=== PATIENT | male | born 1950 | race Caucasian/White ===

== ENCOUNTER → 2019-12-31 10:50 | Outpatient (CLI) | payer MEDICARE, OTHER, SELFPAY ==
[2019-12-31 11:23] LABS: Add Manual Diff / Slide Review NO; Basophils Absolute Auto 100 /uL (0-100); Basophils Percent Auto 1.2 % (0-2); Eosinophils Absolute Auto 100 /uL (0-450); Eosinophils Percent Auto 1.3 % (2-4); Hematocrit 45.1 % (41-53); Hemoglobin 15.5 g/dL (13.5-17.5); Lymphocytes Absolute Auto 2600 /uL (1100-4500); Lymphocytes Percent Auto 43.1 % (25-40); Mean Corpuscular HGB Conc 34.3 % (30-36); Mean Corpuscular Hemoglobin 29.8 PG (26-34); Mean Corpuscular Volume 86.8 fL (80-100); Monocytes Absolute Auto 400 /uL (0-900); Monocytes Percent Auto 6.2 % (3-14); Neutrophils Absolute Auto 2900 /uL (1500-7000); Neutrophils Percent Auto 48.2 % (50-75); Platelet Count 194 X10^3/uL (150-400)
[2019-12-31 11:54] LABS: Alanine Aminotransferase 22 IU/L (<50); Albumin 3.9 g/dL (3.5-5.0); Albumin Globulin Ratio 1.6 (1.0-2.8); Alkaline Phosphatase 52 U/L (38-126); Aspartate Aminotransferase 30 IU/L (17-59); BUN Creatinine Ratio 15.8 (6-22); Bilirubin Total 0.7 mg/dL (0.2-1.3); Blood Urea Nitrogen 16 mg/dL (9-20); Calcium 9.3 mg/dL (8.4-10.2); Carbon Dioxide 32 mmol/L (22-32); Chloride 102 mmol/L (98-107); Cholesterol 122 mg/dL (140-199); Estimated Glomerular Filt Rate > 60.0 mL/min (>60); Globulin 2.5 g/dL (1.7-4.1); Glucose 108 mg/dL (80-110); HDL Cholesterol 30 mg/dL (40-60); HEMOLYSIS < 15 (0-50); LDL Cholesterol Calculated 71 mg/dL (<100); Potassium 3.9 mmol/L (3.4-5.1); Sodium 138 mmol/L (137-145); Total Protein 6.4 g/dL (6.3-8.2); Triglycerides 103 mg/dL (35-150)
== END ==
PROVIDERS: PCP Physician Assistant; Referring Provider Physician Assistant; Visit Provider Physician Assistant
DX: E78.00 Pure hypercholesterolemia, unspecified (principal); I10 Essential (primary) hypertension
CPT/HCPCS: 36415; 80053; 80061; 85025

== ENCOUNTER → 2020-06-30 12:37 | Outpatient (CLI) | payer MEDICARE, OTHER, SELFPAY ==
[2020-06-30 13:26] LABS: Add Manual Diff / Slide Review NO; Basophils Absolute Auto 100 /uL (0-100); Basophils Percent Auto 0.9 % (0-2); Eosinophils Absolute Auto 100 /uL (0-450); Eosinophils Percent Auto 1.3 % (2-4); Hematocrit 45.2 % (41-53); Hemoglobin 14.9 g/dL (13.5-17.5); Lymphocytes Absolute Auto 3200 /uL (1100-4500); Lymphocytes Percent Auto 41.7 % (25-40); Mean Corpuscular Hemoglobin 28.9 PG (26-34); Mean Corpuscular Volume 87.5 fL (80-100); Monocytes Absolute Auto 400 /uL (0-900); Monocytes Percent Auto 5.6 % (3-14); Neutrophils Absolute Auto 3800 /uL (1500-7000); Neutrophils Percent Auto 50.5 % (50-75); Platelet Count 221 X10^3/uL (150-400); Red Blood Cell Count 5.17 X10^6/uL (4.5-5.9); Red Cell Distribution Width 14.9 % (11.6-14.8); White Blood Cell Count 7.6 X10^3/uL (4.5-11.0)
[2020-06-30 13:55] LABS: Carbon Dioxide 34 mmol/L (22-32); Chloride 101 mmol/L (98-107); HEMOLYSIS < 15 (0-50); Potassium 3.9 mmol/L (3.4-5.1); Sodium 138 mmol/L (137-145)
== END ==
PROVIDERS: PCP Physician Assistant; Referring Provider Physician Assistant; Visit Provider Orthopaedic Surgery
DX: Z01.812 Encounter for preprocedural laboratory examination (principal); Z01.818 Encounter for other preprocedural examination
CPT/HCPCS: 36415; 80051; 85025

== ENCOUNTER → 2020-12-29 09:55 | Outpatient (CLI) | payer MEDICARE, OTHER, SELFPAY ==
[2020-12-29 10:38] LABS: Add Manual Diff / Slide Review NO; Basophils Absolute Auto 0 /uL (0-100); Basophils Percent Auto 0.6 % (0-2); Eosinophils Absolute Auto 100 /uL (0-450); Eosinophils Percent Auto 1.8 % (2-4); Hematocrit 47.8 % (41-53); Hemoglobin 15.8 g/dL (13.5-17.5); Lymphocytes Absolute Auto 2900 /uL (1100-4500); Lymphocytes Percent Auto 47.4 % (25-40); Mean Corpuscular HGB Conc 33.1 % (30-36); Mean Corpuscular Hemoglobin 28.8 PG (26-34); Mean Corpuscular Volume 87.1 fL (80-100); Monocytes Absolute Auto 400 /uL (0-900); Monocytes Percent Auto 6.5 % (3-14); Neutrophils Absolute Auto 2700 /uL (1500-7000); Neutrophils Percent Auto 43.7 % (50-75); Platelet Count 225 X10^3/uL (150-400); Red Blood Cell Count 5.48 X10^6/uL (4.5-5.9); Red Cell Distribution Width 15.3 % (11.6-14.8); White Blood Cell Count 6.1 X10^3/uL (4.5-11.0)
[2020-12-29 10:57] LABS: HEMOLYSIS < 15 (0-50); Potassium 3.9 mmol/L (3.4-5.1)
[2020-12-29 10:58] LABS: Alanine Aminotransferase 27 IU/L (<50); Albumin 3.9 g/dL (3.5-5.0); Albumin Globulin Ratio 1.4 (1.0-2.8); Alkaline Phosphatase 60 U/L (38-126); Aspartate Aminotransferase 30 IU/L (17-59); BUN Creatinine Ratio 16.3 (6-22); Bilirubin Total 0.6 mg/dL (0.2-1.3); Blood Urea Nitrogen 16 mg/dL (9-20); Calcium 9.4 mg/dL (8.4-10.2); Carbon Dioxide 31 mmol/L (22-32); Chloride 104 mmol/L (98-107); Cholesterol 130 mg/dL (140-199); Estimated Glomerular Filt Rate > 60.0 mL/min (>60); Globulin 2.8 g/dL (1.7-4.1); Glucose 110 mg/dL (80-110); HDL Cholesterol 33 mg/dL (40-60); LDL Cholesterol Calculated 80 mg/dL (<100); Sodium 141 mmol/L (137-145); Total Protein 6.7 g/dL (6.3-8.2); Triglycerides 87 mg/dL (35-150)
[2020-12-29 17:30] LABS: Hep C Virus Ab w/Reflex Quant NEGATIVE s/c (NEGATIVE)
== END ==
PROVIDERS: PCP Physician Assistant; Referring Provider Physician Assistant; Visit Provider Physician Assistant
DX: E78.2 Mixed hyperlipidemia (principal); Z11.59 Encounter for screening for other viral diseases
CPT/HCPCS: 36415; 80053; 80061; 85025; 86803

== ENCOUNTER → 2021-05-31 09:05 | Outpatient (CLI) | payer MEDICARE, OTHER, SELFPAY ==
[2021-05-31 12:13] LABS: COVID19 -Nasal RAPID Negative (Negative)
== END ==
PROVIDERS: PCP Physician Assistant; Visit Provider Specialist
DX: Z01.812 Encounter for preprocedural laboratory examination (principal); Z20.822 Contact with and (suspected) exposure to COVID-19
CPT/HCPCS: 87635; C9803

== ENCOUNTER 2021-06-01 13:17 | Day surgery (SDC) | payer MEDICARE, OTHER, SELFPAY ==
--- NOTE | 2021-06-01 | PATH_ITS ---
[facility] Accession Number: [id number] . 01 Material submitted: . PART A: colon - ASCENDING COLON POLYP X2 PART B: colon - 70CM COLON POLYP X2 PART C: rectum - RECTUM POLYP . 02 Diagnosis: A. Ascending Colon, Polyp x2, Biopsy: Multiple fragments of tubular adenoma, sessile serrated adenoma and benign lymphoid aggregate. . B. Colon, Polyp 70 cm x2, Biopsies: Tubulovillous adenoma in one of multiple fragments. Benign lymphoid aggregate in one fragment. Additional levels were examined. No evidence of malignancy or high grade dysplasia. . C. Rectum, Polyp, Biopsy: Hyperplastic polyp with features of mucosal prolapse. . [facility] 06/07/2021 1443 Local . 02 Electronically signed: . Becky Cameron MD, Pathologist NPI- [id number] . 01 Gross description: . A. Specimen A is received in formalin labeled ascending colon polyp and consists of multiple rodríguez-pink fragments of soft tissue, measuring 1.0 x 0.7 x 0.2 cm in aggregate. The specimen is entirely submitted in cassette A1. B. Specimen B is received in formalin labeled 70 cm colon polyp and consists of multiple rodríguez-pink fragments of soft tissue, measuring 0.9 x 0.7 x 0.2 cm in aggregate. The specimen is entirely submitted in cassette B1. C. Specimen C is received in formalin labeled rectum polyp and consists of a 0.3 x 0.2 x 0.2 cm rodríguez-pink fragment of soft tissue which is entirely submitted in cassette C1. ([id number]) /[facility] 06/02/2021 1802 Local . 02 Pathologist provided ICD-10: D12.2, D12.6 . 02 CPT . 206913, 106171, 218518 Performed at: 01 [facility] [address] [place] [address], [place], [place] [id number] MD Sebastián Giang MD Phone: [phone] Performed at: 02 [facility] [place] [address] [address] [place], [place] [id number] MD Becky Cameron MD Phone: [phone]
[2021-06-01 14:04] VITALS: BP 168/68; PULSE 78; RESP 18; TEMP 36.9; BMI 33.1
--- NOTE | 2021-06-01 14:37 | PM.HP.1 ---
History of Present Illness History of Present Illness Date Patient Seen: 06/01/21 Time Patient Seen: 14:37 Date of Onset of Symptoms: 06/01/21 Chief complaint: SCREENING COLONOSCOPY Narrative: The patient is here for screening colonoscopy. Last exam was 5 years ago. He had an uncle had colon cancer and he has personally had polyps removed. Patient History Medical History (Updated 06/01/21 @ 14:40 by Vaibhav Guerrero MD) BPH (benign prostatic hyperplasia) Hypertension Personal history of colonic polyps Family & Social History Social History: household members spouse Tobacco & Substance use: Smoking Status Former smoker alcohol intake frequency holiday/special occasion Substance Use Type does not use Meds Home Medications and Allergies Home Medications Medication Instructions Recorded Confirmed Type aspirin 81 mg tablet,delayed 81 mg PO BID #60 tab 04/13/16 06/01/21 Rx release amlodipine 10 mg tablet 10 mg PO DAILY 06/01/21 06/01/21 History hydrochlorothiazide 25 mg tablet 25 mg PO DAILY 06/01/21 06/01/21 History lisinopril 40 mg tablet 40 mg PO DAILY 06/01/21 06/01/21 History simvastatin 40 mg tablet 40 mg PO DAILY 06/01/21 06/01/21 History Allergies Allergy/AdvReac Type Severity Reaction Status Date / Time No Known Drug Allergies Allergy Verified 06/01/21 13:57 Review of Systems Review of Systems Narrative: Patient has no heart or breathing problems. No black or bloody bowel movements. No seizures or blackouts. Exam Vital Signs (past 8 hours): - 06/01/21 14:04 Temperature 98.4 F Pulse Rate 78 Respiratory Rate 18 Blood Pressure 168/68 H Oxygen Delivery Method Room Air Narrative Exam Narrative: Pleasant cooperative patient no apparent distress. Lungs are clear to auscultation. No rales or rhonchi. Heart regular rate and rhythm no murmur gallop. Abdomen is soft nontender without mass. No obvious hernias. Patient is alert and oriented x3. Assessment & Plan Assessment and plan (1) Personal history of colonic polyps: Status: Acute (2) Screening for colon cancer: Status: Acute Assessment & Plan narrative: Patient here for screening colonoscopy. I have discussed the procedure and the rationale with the patient including risks of bleeding, perforation which would necessitate a major operation, failure to find remove all lesions and the potential to tattoo. They appeared to understand and wished to proceed. Time Spent With Patient Critical Care time: I spent a total of [] minutes of critical care time on this patient's care today; this time is exclusive of procedural time.
--- NOTE | 2021-06-01 14:41 | PM.PREOP ---
Pre-operative Note COVID-19 COVID-19 status: Negative Result date/Date tested (Pos, Neg/Pending): 05/31/21 Interval Note History & Physical reviewed/Exam performed by Physician: Yes Changes to H&P: No ASA Class (for procedural sedation): II
[2021-06-01] MEDS: fentaNYL 250 MCG/5 ML INJ IV (14:49)
[2021-06-01] MEDS: MIDAZOLAM 5 MG/5 ML VIAL IV (15:06)
--- NOTE | 2021-06-01 15:28 | P.OP.COLON_ITS ---
Operative Date/Time/Diagnoses Date of procedure: 06/01/21 Time of procedure: 15:28 Pre-op diagnosis: History of colon polyps. Uncle with colon cancer. Last colonoscopy 5 years ago. Post-op diagnosis: same Procedure & Clinicians Study performed: Colonoscopy with hot snare polypectomy and cold biopsy Same procedure as scheduled: Yes Indications: Screening high risk patient Surgeon: Vaibhav Guerrero Procedure Notes SCOAP/Timeout: Performed Procedure in detail: The patient was placed in the left lateral decubitus position and underwent IV sedation directed by the surgeon consisting of fentanyl and Versed. Digital exa m was remarkable for a lax sphincter in an enlarged prostate. I did not feel a dominant mass. The scope was inserted and advanced through the rectum into the sigmoid, descending, transverse, and ascending colon. Patient was noted to have sigmoid diverticulosis. I Identified a polyp on the in the ascending colon which I snared in pieces and cauterized any residual. The cecum was reached identified by the ileocecal valve and the appendiceal opening. The ileocecal valve was briefly cannulated. The terminal ileum was normal in appearance. The scope was gradually brought out. An additional Polyp was found in the ascending colon which was biopsied and removed. On further regressed identified 2 polyps near70 cm from the anal verge which were snared and 1 small polyp in the rectum which I biopsied. All appeared to be completely removed. The scope ultimately was retroflexed in the rectum. The appearance was normal. The scope was removed and the patient tolerated the procedure well. The prep was adequate. Scope withdrawal time: 8 minutes(21.5 total) Sedation minutes: 40 Findings: divertiulosis and polyp(s) Specimen(s): other (Five polyps sent in 3 containers) Complications: none Post-procedure Recommendations: Colonoscopy in 5 years Follow up: as needed Disposition: PACU
[2021-06-01 15:31] VITALS: BP 160/80; PULSE 64; RESP 12; TEMP 36.4; O2SAT 99
[2021-06-01 15:36] VITALS: BP 145/74; PULSE 61; RESP 12; O2SAT 99
[2021-06-01 15:42] VITALS: BP 139/70; PULSE 60; RESP 12; O2SAT 98
[2021-06-01 15:46] VITALS: BP 154/77; PULSE 59; RESP 16; O2SAT 98
== END 2021-06-01 16:02 | disposition home or self-care (01) ==
PROVIDERS: PCP Physician Assistant; Referring Provider Specialist; Visit Provider Specialist
PROC: 0DJD8ZZ Inspection of Lower Intestinal Tract, Via Natural or Artificial Opening Endoscopic (ICD-10-PCS; CPT 45378; principal; 2021-06-01 14:30)
DX: Z12.11 Encounter for screening for malignant neoplasm of colon (principal); Z86.010 Personal history of colon polyps; I10 Essential (primary) hypertension; N40.0 Benign prostatic hyperplasia without lower urinary tract symptoms; D12.2 Benign neoplasm of ascending colon; K62.1 Rectal polyp
CPT/HCPCS: 45385; 45380; 99152; 99153; J2250; J3010

== ENCOUNTER → 2022-12-06 11:28 | Outpatient (CLI) | payer MEDICARE, OTHER, SELFPAY ==
[2022-12-06 13:14] LABS: BUN Creatinine Ratio 17.5 (6-22); Blood Urea Nitrogen 21 mg/dL (9-20); Calcium 9.2 mg/dL (8.4-10.2); Carbon Dioxide 31 mmol/L (22-32); Chloride 101 mmol/L (98-107); Estimated Glomerular Filt Rate > 60 mL/min (>60); Glucose 94 mg/dL (80-110); HEMOLYSIS < 15 (0-50); Potassium 4.2 mmol/L (3.4-5.1); Sodium 139 mmol/L (137-145)
== END ==
PROVIDERS: PCP Physician Assistant; Referring Provider Urology; Visit Provider Urology
DX: Z01.812 Encounter for preprocedural laboratory examination (principal); R31.21 Asymptomatic microscopic hematuria; R39.9 Unspecified symptoms and signs involving the genitourinary system; N40.1 Benign prostatic hyperplasia with lower urinary tract symptoms; R35.1 Nocturia
CPT/HCPCS: 36415; 51798; 80048; 81002; 99214

== ENCOUNTER → 2022-12-09 09:43 | Outpatient (CLI) | payer MEDICARE, OTHER, SELFPAY ==
--- NOTE | 2022-12-09 09:45 | DI.CT.S_ITS ---
PROCEDURE: CT ABDOMEN PELVIS WO/W CON INDICATIONS: hematuria TECHNIQUE: Optional 5 mm thick noncontrast images acquired from the diaphragm to the symphysis pubis. After the administration of intravenous contrast, 5 mm thick images acquired from the diaphragm to the symphysis pubis after a 10-minute delay. 2 mm thick coronal and sagittal reformats were then performed of the kidneys and ureters. For radiation dose reduction, the following was used: automated exposure control, adjustment of mA and/or kV according to patient size. COMPARISON: None. FINDINGS: Image quality: Excellent. Lung bases: Clear lung bases. Normal size heart. Small hiatal hernia. A few esophageal varices and aorta esophageal lymph node identified. Urinary system: Both kidneys are normal in size, without hydronephrosis or nephrolithiasis on pre-contrast images. An 8.8 cm nearly simple cyst arises from the anterior lower pole right kidney and contains a fine, minimally calcified septation. Occasional cysts are seen in the left kidney, the largest is arising from the left lower pole measuring 1.9 cm. A 1.8 cm hyperdense exophytic cyst arises from the midpole right kidney. No enhancement postcontrast. The renal parenchyma enhances symmetrically. There are parapelvic cysts, left more so than right. There is a focal transition at the left UPJ. Calices and ureters are otherwise normally opacified. The urinary bladder is partially distended and the wall demonstrates mild uniform thickening. The prostate gland is markedly enlarged measuring about 7.1 x 6.2 by 7.4 cm. Other solid organs: The liver is normal size. There are numerous thin-walled hypodensities scattered throughout, likely cysts. The gallbladder is decompressed. Biliary tree is appropriate for age. Normal pancreas, spleen, and adrenal glands. Peritoneum and bowel: There is extensive diverticular disease of the sigmoid colon and moderately throughout the remainder of the colon. There is a normal appendix. Stomach and small bowel are within normal limits. Nodes and vessels: No retroperitoneal or mesenteric adenopathy. Aorta and IVC are normal caliber. Abdominal wall: Tiny fat containing umbilical hernia. Pelvis: There is prominent bilateral obturator and iliac adenopathy. There are several mildly enlarged inguinal lymph nodes bilaterally. No proximal common iliac chain adenopathy. No free fluid. No inguinal hernias. Bones: No suspicious bony lesions. No vertebral body compression fractures. Severe disc degeneration L5-S1. IMPRESSION: 1. Markedly enlarged prostate gland likely causes chronic bladder outlet obstruction leading to thickened urinary bladder wall. 2. Simple and proteinaceous renal cysts, Bosniak one and two. No solid renal mass. 3. There is mildly suspicious bilateral pelvic adenopathy. This may be secondary to an infectious or inflammatory cystitis, prostatitis or be evidence of neoplasm, potentially in the prostate gland. Dictated by: Mesha Webber M.D. on 12/09/2022 at 18:56 Approved by: Mesha Webber M.D. on 12/09/2022 at 19:11
== END ==
PROVIDERS: PCP Physician Assistant; Referring Provider Urology; Visit Provider Urology
DX: R31.9 Hematuria, unspecified (principal); N40.0 Benign prostatic hyperplasia without lower urinary tract symptoms; Q61.02 Congenital multiple renal cysts
CPT/HCPCS: 74178; Q9967

== ENCOUNTER → 2022-12-26 10:12 | Outpatient (CLI) | payer MEDICARE, OTHER, SELFPAY ==
[2022-12-26 14:51] LABS: Prostate Specific Antigen 3.96 ng/mL (0.10-4.00)
== END ==
PROVIDERS: PCP Physician Assistant; Referring Provider Urology; Visit Provider Urology
DX: Z87.898 Personal history of other specified conditions (principal)
CPT/HCPCS: 36415; 84153

== ENCOUNTER → 2023-06-14 10:12 | Outpatient (CLI) | payer MEDICARE, OTHER, SELFPAY ==
[2023-06-14 11:15] LABS: Hemoglobin A1C% w Est Avg Glu 6.2 % (4.0-6.0)
[2023-06-14 11:26] LABS: Free T3, Triiodothyronine Free 3.95 pg/mL (2.77-5.27); Free T4, Direct Thyroxine 1.22 ng/dL (0.78-2.19)
[2023-06-14 11:35] LABS: Alanine Aminotransferase 26 IU/L (<50); Albumin 4.1 g/dL (3.5-5.0); Albumin Globulin Ratio 1.4 (1.0-2.8); Alkaline Phosphatase 59 U/L (38-126); Aspartate Aminotransferase 33 IU/L (17-59); BUN Creatinine Ratio 17.8 (6-22); Blood Urea Nitrogen 19 mg/dL (9-20); Calcium 9.5 mg/dL (8.4-10.2); Carbon Dioxide 29 mmol/L (22-32); Chloride 102 mmol/L (98-107); Cholesterol 128 mg/dL (140-199); Estimated Glomerular Filt Rate > 60 mL/min (>60); Glucose 103 mg/dL (80-110); HDL Cholesterol 35 mg/dL (40-60); HEMOLYSIS < 15 (0-50); LDL Cholesterol Calculated 76 mg/dL (<100); Potassium 3.8 mmol/L (3.4-5.1); Sodium 136 mmol/L (137-145); Total Protein 7.1 g/dL (6.3-8.2); Triglycerides 83 mg/dL (35-150)
[2023-06-14 11:37] LABS: Microalbumin Urine Random < 0.6 mg/dL (0-1.6)
[2023-06-14 11:40] LABS: Thyroid Stimulating Hormone 1.28 uIU/mL (0.47-4.68)
== END ==
PROVIDERS: PCP Nurse Practitioner; Referring Provider Nurse Practitioner; Visit Provider Nurse Practitioner
DX: Z79.899 Other long term (current) drug therapy (principal); I10 Essential (primary) hypertension; E78.5 Hyperlipidemia, unspecified
CPT/HCPCS: 36415; 80053; 80061; 82043; 82570; 83036; 84439; 84443; 84481

== ENCOUNTER → 2023-06-25 13:28 | Outpatient (CLI) | payer MEDICARE, OTHER, SELFPAY ==
[2023-06-29 00:07] LABS: PSA Free % 25.9 % (.); PSA, Total 3.2 ng/mL (0.0-4.0)
== END ==
PROVIDERS: PCP Nurse Practitioner; Referring Provider Urology; Visit Provider Urology
DX: Z87.898 Personal history of other specified conditions (principal); R97.20 Elevated prostate specific antigen [PSA]
CPT/HCPCS: 36415; 84153; 84154

== ENCOUNTER → 2023-12-24 13:15 | Outpatient (CLI) | payer MEDICARE, OTHER, SELFPAY ==
[2023-12-24 15:27] LABS: Prostate Specific Antigen 3.54 ng/mL (0.10-4.00)
== END ==
LOC: LAB 13:17
PROVIDERS: PCP Nurse Practitioner; Referring Provider Urology; Visit Provider Urology
DX: R97.20 Elevated prostate specific antigen [PSA] (principal)
CPT/HCPCS: 36415; 84153

== ENCOUNTER → 2024-03-04 12:26 | Outpatient (CLI) | payer MEDICARE, OTHER, SELFPAY ==
[2024-03-04 15:19] LABS: Alanine Aminotransferase 24 IU/L (<50); Albumin 3.9 g/dL (3.5-5.0); Albumin Globulin Ratio 1.4 (1.0-2.8); Alkaline Phosphatase 58 U/L (38-126); Aspartate Aminotransferase 34 IU/L (17-59); BUN Creatinine Ratio 14.6 (6-22); Bilirubin Total 0.8 mg/dL (0.2-1.3); Blood Urea Nitrogen 15 mg/dL (9-20); Calcium 9.4 mg/dL (8.4-10.2); Carbon Dioxide 30 mmol/L (22-32); Chloride 102 mmol/L (98-107); Cholesterol 117 mg/dL (140-199); Estimated Glomerular Filt Rate > 60 mL/min (>60); Globulin 2.7 g/dL (1.7-4.1); Glucose 87 mg/dL (80-110); HDL Cholesterol 37 mg/dL (40-60); HEMOLYSIS < 15 (0-50); LDL Cholesterol Calculated 66 mg/dL (<100); Potassium 4.1 mmol/L (3.4-5.1); Sodium 137 mmol/L (137-145); Total Protein 6.6 g/dL (6.3-8.2); Triglycerides 71 mg/dL (35-150)
[2024-03-04 20:27] LABS: Free T3, Triiodothyronine Free 3.72 pg/mL (2.77-5.27); Free T4, Direct Thyroxine 1.14 ng/dL (0.78-2.19)
[2024-03-04 20:40] LABS: Thyroid Stimulating Hormone 0.878 uIU/mL (0.47-4.68)
[2024-03-04 22:05] LABS: Hemoglobin A1C% w Est Avg Glu 5.8 % (4.0-6.0)
== END ==
PROVIDERS: PCP Nurse Practitioner; Referring Provider Nurse Practitioner; Visit Provider Nurse Practitioner
DX: R73.03 Prediabetes (principal); E78.5 Hyperlipidemia, unspecified; I10 Essential (primary) hypertension
CPT/HCPCS: 36415; 80053; 80061; 83036; 84439; 84443; 84481

== ENCOUNTER → 2024-12-30 10:36 | Outpatient (CLI) | payer MEDICARE, OTHER, SELFPAY ==
[2024-12-30 11:57] LABS: Prostate Specific Antigen 4.73 ng/mL (0.10-4.00)
== END ==
PROVIDERS: Urology; PCP Nurse Practitioner; Referring Provider Urology; Visit Provider Urology
DX: R97.20 Elevated prostate specific antigen [PSA] (principal)
CPT/HCPCS: 36415; 84153

== ENCOUNTER → 2025-01-19 08:35 | Outpatient (CLI) | payer MEDICARE, OTHER, SELFPAY ==
--- NOTE | 2025-01-19 08:39 | DI.MRI.S_ITS ---
PROCEDURE: MR PELVIC PROSTATE PROTOCOL INDICATIONS: 74 y/o M w/ elevated PSA, please eval TECHNIQUE: Coronal HASTE, axial T1 FSE with fat saturation, 3-plane nonbreath-hold T2 FSE. After the administration of contrast, dynamic axial, delayed axial and coronal VIBE or 2-D FLASH with fat saturation through the pelvis. Diffusion weighted imaging and ADC was performed. COMPARISON: [facility], CT, CT ABDOMEN PELVIS WO/W CON, 12/09/2022, 9:54. FINDINGS: Image quality: Diffusion weighted and dynamic contrast enhanced images are diagnostic. Prostate: Gland size is 5.2 x 6.9 x 7.8 cm; ellipsoid gland volume is 146 mL. PSA density is low at 0.0321 Transitional zone heterogenous nodules are present, either well encapsulated or mostly encapsulated, compatible with PI-RADS 1 or 2 likely BPH nodules. Genitourinary system: Mildly trabeculated bladder likely from chronic obstruction. Partially seen right renal cyst Bowel and peritoneum: No bowel obstruction. No drainable abscess or ascites Colonic diverticula Nodes and vessels: There are enlarged pelvic lymph nodes, for example along the right external iliac chain measuring 1.9 cm. No aneurysmal vessel identified Soft tissues: No inguinal hernias. Bones: No suspicious osseous enhancement IMPRESSION: Worsened pelvic lymphadenopathy, possibly lymphoma or other malignancy. Consider sampling and chest abdomen pelvis CT with contrast. This is unlikely to be related to prostate No PI-RADS 4 or 5 lesion identified to indicate clinically significant prostate adenocarcinoma. Predominant findings are prostatomegaly and BPH nodules. Dictated by: Minh Torres M.D. on 01/19/2025 at 15:00 Approved by: Minh Torres M.D. on 01/19/2025 at 15:06
== END ==
LOC: MRI 08:37
PROVIDERS: PCP Internal Medicine; Referring Provider Urology; Visit Provider Urology
DX: N40.2 Nodular prostate without lower urinary tract symptoms (principal); R97.20 Elevated prostate specific antigen [PSA]; N32.89 Other specified disorders of bladder; N28.1 Cyst of kidney, acquired
CPT/HCPCS: 72197; A9579

== ENCOUNTER 2025-05-13 07:19 | Day surgery (SDC) | payer MEDICARE, OTHER, SELFPAY ==
--- NOTE | 2025-05-13 | PATH_ITS ---
[facility] Accession Number: [id number] No. of containers..05 Tissue . 01 Material submitted: . PART A: gastrointestinal site - ANTRAL BIOSY PART B: esophagus - ESOPHAGEAL POLYP PART C: colon - COLON, ASCENDING POLYP PART D: colon - COLON, 70 CM POLYP PART E: colon - COLON, 55 CM POLYP . 01 Diagnosis: A. ANTRUM: Helicobacter pylori gastritis and focal intestinal metaplasia. Helicobacter pylori organisms identified on immunohistochemical evaluation. No dysplasia, or malignancy. . B. ESOPHAGEAL POLYP: Polypoid benign squamous mucosa. See comment. . C. ASCENDING COLON POLYP: Tubular adenoma. . D. COLON POLYP AT 70 CM: Tubular adenoma. . E. COLON POLYP AT 55 CM: Hyperplastic polyp. [facility] 05/27/2025 1144 Local . 01 Comment: B. The histologic features may represent the superficial surface of a benign squamous papilloma in the appropriate clinical context. Correlation with endoscopic features is recommended. No fungal organisms, dysplasia, or malignancy is identified. . 01 Electronically signed: . Ronna Crespo MD, Pathologist NPI- [id number] . 01 Gross description: . A. Received in formalin, labeled with two identifiers and antral biopsy, is a single rodríguez soft tissue fragment measuring 0.4 cm in greatest dimension. Submitted entirely in cassette A1. B. Received in formalin, labeled with two identifiers and esophageal polyp, are three white tissue fragments measuring 0.2-0.4 cm in greatest dimension. Submitted entirely in cassette B1. C. Received in formalin, labeled with two identifiers and ascending colon polyp, are two rodríguez soft tissue fragments measuring 0.3-0.6 cm in greatest dimension. Submitted entirely in cassette C1. D. Received in formalin, labeled with two identifiers and 70 cm colon polyp, is a single rodríguez soft tissue fragment measuring 0.2 cm in greatest dimension. Submitted entirely in cassette D1. E. Received in formalin, labeled with two identifiers and 55 cm colon polyp, is a single rodríguez soft tissue fragment measuring 0.3 cm in greatest dimension. Submitted entirely in cassette E1. ([id number]) /[facility] 05/20/2025 1544 Local . 01 Microscopic: . A. Helicobacter pylori organisms are identified on immunohistochemical evaluation. Controls stain appropriately. . * This test was developed and the performance characteristics were validated [facility]. It has not been cleared or approved by the U.S. Food and Drug Administration. . 01 Pathologist provided ICD-10: B96.81, D12.2, D12.7, D12.6 . 01 CPT . 035576, 835312, 903290, 634662, 714712, R81988 Specimen Comment: A courtesy copy of this report has been sent to [facility] Performed at: [address] [address], [place], [place] [id number] MD Sebastián Giang MD Phone: [phone]
--- NOTE | 2025-05-13 06:43 | PM.HP.IH.1 ---
History of Present Illness History of Present Illness Date Patient Seen: 05/13/25 Time Patient Seen: 06:43 Chief complaint: Screening Colonoscopy Narrative: Patient presents for colonoscopy today. H/O colon polyps. 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 knee replacement (07/21/20) Social History (Updated 03/16/25 @ 11:26 by Kerri Saucedo MA) marital status: number of children: 2 household members: spouse and children lives independently: Yes caregiver/support person: No housing: house pets and animals: No education level: college occupational status: unemployed and other current occupational exposures/hazards: No travel history: recent leisure activities: sports and exercise seatbelt use: always helmet use: Yes water heater temp set < 120 deg: Yes working smoke detector in home: Yes fire extinguisher in home: Yes carbon monox detector in home: Yes firearms in home: Yes firearms unloaded and locked: Yes do you feel safe at home: Yes second hand exposure: No alcohol intake: current during the past year weight has: remained stable well-balanced diet: daily or most days daily servings fruits/ve-4 caffeine: Yes eating out: rarely or never Type(s) of exercise: walking, aerobic, regular exercise, resistance training, advised to exercise at least 150 min/week (moderate intensity aerobic) and advised to perform resistance training at least 2x/week frequency: 3-4 times per week Meds Home Medications and Allergies Home Medications ?Medication ?Instructions ?Recorded ?Confirmed ?Type coenzyme Q10 [Ultra CoQ10] PO 12/06/22 03/16/25 History multivitamin [Daily Multivitamin] 1 tab PO .QD 06/12/23 03/16/25 History finasteride 5 mg tablet 5 mg PO DAILY #90 tabs 01/07/25 03/16/25 Rx tadalafil 10 mg tablet (Cialis) 10 mg PO DAILY PRN sexual activity 01/07/25 03/16/25 Rx #30 tabs tadalafil 5 mg tablet 5 mg PO DAILY #90 tabs 01/07/25 03/16/25 Rx amlodipine 10 mg tablet 10 mg PO BEDTIME #90 tabs 02/25/25 03/16/25 Rx simvastatin 40 mg tablet 40 mg PO BEDTIME #90 tabs 02/25/25 03/16/25 Rx losartan 100 1 tab PO DAILY #90 tabs 02/26/25 03/16/25 Rx mg-hydrochlorothiazide 12.5 mg tablet sodium,potassium,mag sulfates 17.5 See Rx Instructions PO .COMPLEX 03/30/25 Rx gram-3.13 gram-1.6 gram oral soln #354 mL (Suprep Bowel Prep Kit) Allergies Allergy/AdvReac Type Severity Reaction Status Date / Time No Known Drug Allergies Allergy Verified 03/16/25 11:29 Exam Narrative Exam Narrative: Const General: comfortable Orientation: alert and oriented x3 Resp Effort & Inspection: normal respiratory effort and able to speak in complete sentences Cardio Rate: regular rate GI Palpation: soft (NT) Extrem General: no pedal edema and no calf tenderness Assessment & Plan Assessment and plan (1) Encounter for screening colonoscopy: Status: Acute Plan Plan screening colonoscopy, possible biopsy. The risks, benefits and options regarding the procedure were explained to the patient in detail. Risk discussion included but not limited to: bleeding, perforation, missed lesion, unable to reach cecum. The patient was encouraged to ask questions and they were answered to their satisfaction. The patient understands and is agreeable to proceed. Time-Based Coding :: [TOTAL MINUTES] spent with patient and on the chart (including review of chart, obtaining history, exam, reviewing outside data, placing orders, documenting exam and treatment plan, and counseling patient) on [DATE]. PROFEE Site Medical Director Document charge(s): Yes Charge Codes Inpatient/observation care including admit and discharge same day: [id number]
[2025-05-13 07:32] VITALS: BP 174/75; PULSE 74; RESP 18; TEMP 36.4; O2SAT 94
[2025-05-13] MEDS: LACTATED RINGERS 1,000 ML 84 ML IV (07:40)
--- NOTE | 2025-05-13 08:15 | P.OP.EGD&C_ITS ---
Operative Date/Time/Diagnoses Date of procedure: 05/13/25 Time of procedure: 08:59 Pre-op diagnosis: Hiatal hernia, screening colon Post-op diagnosis: other (hiatal hernia, gastritis, esophageal polyp, colon polyps) Procedure & Clinicians Study performed: EGD/Colonoscopy Same procedure(s) as scheduled: Yes Indications: 75yo M, activity in hiatal hernia on PET, screening colonoscopy, h/o tubular adenoma Surgeon: Gregor Zimmer Anesthesia Type: MAC +/- Procedure Notes SCOAP/Timeout: Performed Procedure in detail: EGD Informed consent was obtained. The procedure, its risks, benefits, and alternatives were discussed. Patient understood and agreed to proceed. The patient was placed in the left lateral decubitus position with head elevated. Sedation given per anesthesia. The video endoscope was inserted into the oropharynx and guided under direct vision into the esophagus, stomach, and duodenum which were carefully examined. The scope was retroflexed to examine the hiatus and gastroesophageal junction. Antral biopsies were obtained for Helicobacter pylori. The patient tolerated the procedure very well. There were no apparent complications. Significant EGD findings: Z-line noted at: 36cm 3cm hiatal hernia without esophagitis 3mm sessile polyp in esophagus at 30cm, benign appearing, biopsied Mod antral gastritis, biopsied for H pylori Duodenum normal Moderate gastritis in gastric body Colonoscopy Patient placed in left lateral recumbent position. Time out was performed. Procedural sedation was administered by anesthesia. Examination began with a thorough inspection of the perianal area. There was no evidence of fissures, fistulae, external hemorrhoids or cutaneous malignancy. The colonoscope was then placed into the rectum and the lumen was insufflated with carbon dioxide. The scope was carefully advanced forward. Ultimately the cecum was intubated and confirmed by identification of the ileocecal valve, the appendiceal orifice and the confluence of the taenia. The scope was then slowly withdrawn examining the colon thoroughly in all directions. In the rectum, retroflexion of the scope was performed for inspection of the distal rectum and anal canal. ?Significant colonoscopy findings: ?1. Quality of the preparation-good, [place] 2-3, improved with irrigation/suction ?2. Three polyps, 3mm, sessile, benign appearing, all removed by cold snare and retrieved for pathology; one in ascending, 70cm, 55cm 3. Sigmoid diverticulosis Scope withdrawal time: 14 minutes Findings: diverticulosis, gastritis, hiatal hernia and polyp Specimen(s): other (antral biopsies, colon polyps) Estimated Blood Loss: 5 Complications: none Impression: Antritis Hiatal hernia Esophageal polyp Colon polyps Diverticulosis Post-procedure Recommendations: Colonscopy in 5 years Plan for aftercare: PACU then home Follow up: as needed Disposition: PACU
[2025-05-13 08:53] VITALS: BP 91/50; PULSE 62; RESP 21; TEMP 36.2; O2SAT 93
[2025-05-13 08:54] VITALS: BP 99/51; PULSE 64; RESP 16; O2SAT 98
[2025-05-13 09:04] VITALS: BP 120/60; PULSE 64; RESP 16; O2SAT 97
[2025-05-13 09:22] VITALS: BP 121/60; PULSE 64; RESP 16; O2SAT 98
== END 2025-05-13 09:24 | disposition home or self-care (01) ==
PROVIDERS: PCP Internal Medicine; Referring Provider Surgery; Visit Provider Surgery
PROC: 0DJ08ZZ Inspection of Upper Intestinal Tract, Via Natural or Artificial Opening Endoscopic (ICD-10-PCS; CPT 45385; principal; 2025-05-13 08:30)
PROC: 0DJD8ZZ Inspection of Lower Intestinal Tract, Via Natural or Artificial Opening Endoscopic (ICD-10-PCS; CPT 45378; 2025-05-13 08:30)
DX: Z12.11 Encounter for screening for malignant neoplasm of colon (principal); K29.50 Unspecified chronic gastritis without bleeding; B96.81 Helicobacter pylori [H. pylori] as the cause of diseases classified elsewhere; K31.A0 Gastric intestinal metaplasia, unspecified; D12.2 Benign neoplasm of ascending colon; D12.6 Benign neoplasm of colon, unspecified; K22.81 Esophageal polyp; K44.9 Diaphragmatic hernia without obstruction or gangrene; K57.30 Diverticulosis of large intestine without perforation or abscess without bleeding; Z86.0101 Personal history of adenomatous and serrated colon polyps
CPT/HCPCS: 45385; 43239; J2250; J2704; J7120

== ENCOUNTER → 2025-06-23 09:53 | Outpatient (CLI) | payer MEDICARE, OTHER, SELFPAY | PROVIDERS: PCP Internal Medicine; Referring Provider Urology; Visit Provider Urology | DX: R97.20 Elevated prostate specific antigen [PSA] (principal); N40.1 Benign prostatic hyperplasia with lower urinary tract symptoms | CPT/HCPCS: 36415; 84153; 84154 ==